=== PATIENT | male | born 1955 | race Caucasian/White ===

== ENCOUNTER 2016-10-02 13:03 | Emergency (ER) | payer OTHER ==
[2016-10-02] MEDS ORDERED: LIPITOR PO (13:21)
== END 2016-10-02 14:44 | disposition home or self-care (01) ==
LOC: SED 13:03
DX: S61.012A Laceration without foreign body of left thumb without damage to nail, initial encounter (principal); F17.200 Nicotine dependence, unspecified, uncomplicated; Z23 Encounter for immunization; W26.0XXA Contact with knife, initial encounter; Y92.009 Unspecified place in unspecified non-institutional (private) residence as the place of occurrence of the external cause
CPT/HCPCS: 12001; 90471; 90715; 99283

== ENCOUNTER 2016-10-14 09:37 | Emergency (ER) | payer OTHER ==
[~2016-10-14 09:37] MED LIST: LIPITOR PO
== END 2016-10-14 10:12 | disposition home or self-care (01) ==
LOC: SED 09:37
DX: S61.011D Laceration without foreign body of right thumb without damage to nail, subsequent encounter (principal); E78.5 Hyperlipidemia, unspecified; F17.200 Nicotine dependence, unspecified, uncomplicated; Z79.899 Other long term (current) drug therapy
CPT/HCPCS: 99281